=== PATIENT | male | born 1945 | race Caucasian/White ===

== ENCOUNTER 2021-06-28 14:12 | Outpatient (CLI) | payer MEDICARE, OTHER | END 2021-06-28 14:13 | disposition home or self-care (01) | LOC: CSHRAD 14:12 | PROVIDERS: ATTEND Physician Assistant | DX: M54.5 Low back pain (principal); M48.56XA Collapsed vertebra, not elsewhere classified, lumbar region, initial encounter for fracture; M47.816 Spondylosis without myelopathy or radiculopathy, lumbar region | CPT/HCPCS: 72100 ==

== ENCOUNTER 2022-03-27 09:52 | Outpatient (CLI) | payer MEDICARE, OTHER ==
[~2022-03-27 09:52] MED LIST: Magnevist 469MG/ML 20 ML VIAL ONE
== END 2022-03-27 09:53 | disposition home or self-care (01) ==
LOC: CSHMRI 09:52
PROVIDERS: ATTEND Otolaryngology Plastic Surgery within the Head & Neck
DX: H83.2X3 Labyrinthine dysfunction, bilateral (principal); R42 Dizziness and giddiness; H83.92 Unspecified disease of left inner ear
CPT/HCPCS: 70553; 82565

== ENCOUNTER 2022-09-15 09:01 | Inpatient (IN) | payer MEDICARE, OTHER ==
[2022-09-15 09:32] VITALS: TEMP 97.2
[2022-09-15] MEDS ORDERED: Iopamidol 300 61% 100 ML VIAL FS ONE (09:32)
[2022-09-15] MEDS ORDERED: Phenylephrine 40 MG/NS 250 ML 250 ML ONE ×2 (09:37→09:38)
[2022-09-15] MEDS ORDERED: Heparin 10,000 UNITS/ 10 ML VIAL ONE (09:42)
[2022-09-15] MEDS ORDERED: Lidocaine 1% 20 ML MDV ONE (09:42)
[2022-09-15] MEDS ORDERED: Atropine Sulfate 0.4 mg/1 ml Vial ONE ×2 (09:45→12:59)
[2022-09-15] MEDS ORDERED: FLU VACC QS2022-23(65YR UP)/PF 240 MCG/0.7 ML SYRINGE IM ONE (09:45)
[2022-09-15] MEDS ORDERED: PHENYLEPHRINE-NS 100 MCG/ML 10 ML SYRINGE ONE (09:47)
[2022-09-15] MEDS ORDERED: Aspirin 325 MG TAB ONE (11:17)
[2022-09-15] MEDS ORDERED: Ascorbic Acid 500 mg Chewable Tablet ONE (11:18)
[2022-09-15] MEDS ORDERED: Fentanyl 100 MCG/2 ML VIAL ONE (11:18)
[2022-09-15] MEDS ORDERED: Midazolam HCl 2 mg/2 ml Vial ONE (11:19)
[2022-09-15] MEDS ORDERED: Prasugrel 10 MG TAB PO SCH (12:30)
[2022-09-15] MEDS ORDERED: Acetaminophen/Codeine 30-300mg Tablet PO PRN ×2 (13:18)
[2022-09-15] MEDS ORDERED: Meclizine HCl 25 MG TAB PO PRN (13:23)
[2022-09-15] MEDS ORDERED: traMADol HCl 50 MG TAB PO PRN ×2 (13:23→14:30)
[2022-09-15] MEDS ORDERED: Sodium Chloride 0.9% 1,000 ML IV SCH (13:30)
[2022-09-15 14:05] VITALS: BMI 25.7
[2022-09-15] MEDS ORDERED: Methocarbamol 500 MG TAB PO PRN (14:22)
[2022-09-15] MEDS ORDERED: Phenylephrine 40 MG/NS 250 ML 40 MG in Premix Bag 1 BAG IVPB SCH (19:45)
[2022-09-15] MEDS ORDERED: traZODone HCl 50 MG TAB PO SCH (21:00)
[2022-09-15] MEDS ORDERED: Amlodipine 10 MG TAB PO SCH (21:00)
[2022-09-15] MEDS ORDERED: Atorvastatin Calcium 40 MG TAB PO SCH (21:00)
[2022-09-16 04:44] LABS: #Basophils 0.1 10x3/uL (0.0-0.2); #Eosinphils 0.3 10x3/uL (0.0-0.5); #Monocytes 1.1 10x3/uL (0.0-1.1); #Neutrophils 8.4 10x3/uL (1.5-8.4); %Basophils 0.5 % (0.0-2.0); %Eosinophils 2.2 % (0.0-6.0); %Monocytes 7.9 % (0.0-10.0); %Neutrophils 60.5 % (40.0-75.0); Hemoglobin 12.8 g/dL (13.5-17.5); Mean Corpuscular HGB CONC 34.9 g/dL (32.0-36.0); Mean Corpuscular Hemoglobin 31.6 pg (27.0-33.0); Mean Corpuscular Volume 90.6 fl (81.2-95.1); Mean Platelet Volume 10.1 fl (7.4-10.4); Platelet Count 287 10x3/uL (150-450); RBC Distribution Width 13.2 % (11.5-14.5); Red Blood Cell (RBC) Count 4.05 10x6/uL (4.32-5.72); White Blood Cell (WBC) Count 13.8 10x3/uL (3.5-10.5)
[2022-09-16 04:50] LABS: ALT (SGPT) 30 U/L (8-55); AST (SGOT) 23 U/L (5-34); Albumin 3.5 g/dL (3.4-4.8); Alkaline Phosphatase 79 U/L (40-110); Anion Gap 13 mmol/L (10-20); BUN (Urea Nitrogen) 18 mg/dL (8.4-25.7); Bilirubin, Total 0.5 mg/dL (0.2-1.2); Calc. Creatinine Clearance 81 mL/min (70-130); Calcium 8.6 mg/dL (7.8-10.44); Carbon Dioxide 21 mmol/L (23-31); Chloride 106 mmol/L (98-107); Estimated GFR 79; Globulin 2.8 g/dL (2.4-3.5); Glucose 125 mg/dL (83-110); Potassium 3.8 mmol/L (3.5-5.1); Protein, Total 6.3 g/dL (5.8-8.1); Sodium 136 mmol/L (136-145)
[2022-09-16] MEDS ORDERED: Allopurinol 300 MG TAB PO SCH (09:00)
[2022-09-16] MEDS ORDERED: Citalopram 20 MG TAB PO SCH (09:00)
[2022-09-16] MEDS ORDERED: Aspirin 81 mg Enteric Coated Tablet PO SCH (09:00)
[2022-09-16] MEDS ORDERED: Amlodipine 10 MG TAB PO SCH (09:00)
[2022-09-16] MEDS ORDERED: Lisinopril 10 MG TAB PO SCH (09:00)
[2022-09-16 09:01] VITALS: BP 88/56
[2022-09-16] MEDS ORDERED: Prasugrel 10 MG TAB PO SCH (21:00)
== END 2022-09-16 14:15 | disposition home or self-care (01) | DRG 36 ==
LOC: CSHSDC 09:01 → CSHICU 14:07
PROVIDERS: ADMIT Specialist; ATTEND Specialist
PROC: 4A023N7 Measurement of Cardiac Sampling and Pressure, Left Heart, Percutaneous Approach (ICD-10-PCS; principal; 2022-09-15)
PROC: 037K3DZ Dilation of Right Internal Carotid Artery with Intraluminal Device, Percutaneous Approach (ICD-10-PCS; 2022-09-15)
PROC: B2111ZZ Fluoroscopy of Multiple Coronary Arteries using Low Osmolar Contrast (ICD-10-PCS; 2022-09-15)
PROC: B2151ZZ Fluoroscopy of Left Heart using Low Osmolar Contrast (ICD-10-PCS; 2022-09-15)
PROC: B30 Imaging, Upper Arteries, Plain Radiography (ICD-10-PCS; 2022-09-15)
PROC: B3021ZZ Plain Radiography of Left Subclavian Artery using Low Osmolar Contrast (ICD-10-PCS; 2022-09-15)
DX: I65.21 Occlusion and stenosis of right carotid artery (principal); Z20.822 Contact with and (suspected) exposure to COVID-19; E11.9 Type 2 diabetes mellitus without complications; E78.5 Hyperlipidemia, unspecified; I10 Essential (primary) hypertension; I25.10 Atherosclerotic heart disease of native coronary artery without angina pectoris; R00.1 Bradycardia, unspecified; I45.10 Unspecified right bundle-branch block; I35.0 Nonrheumatic aortic (valve) stenosis; Z95.5 Presence of coronary angioplasty implant and graft
CPT/HCPCS: 36140; 36215; 36222; 36225; 36227; 37215; 75710; 80048; 80053; 85025; 85027; 85610; 93005; 93010; 93458; 99152; 99153; C1769; C1876; C1884; C1894; J0461; J1644; J2250; J3010; J7050; Q9967

== ENCOUNTER 2023-03-16 09:01 | Outpatient (CLI) | payer MEDICARE, OTHER ==
[2023-03-16] MEDS ORDERED: Magnevist 469MG/ML 20 ML VIAL ONE (09:51)
== END 2023-03-16 09:02 | disposition home or self-care (01) ==
LOC: CSHMRI 09:01
PROVIDERS: ATTEND Otolaryngology Plastic Surgery within the Head & Neck
DX: H81.4 Vertigo of central origin (principal); H61.92 Disorder of left external ear, unspecified; I67.9 Cerebrovascular disease, unspecified; G93.89 Other specified disorders of brain
CPT/HCPCS: 70553; 82565; A9579